=== PATIENT | male | born 1995 | race Caucasian/White ===

== ENCOUNTER → 2021-01-26 | Outpatient (CLI) | payer OTHER ==
[~2021-01-26] MED LIST: Cleocin HCl150 MG PO; MAGIC MOUTHWASH; Prednisone20 MG PO; Zofran Odt4 MG SL
== END | disposition home or self-care (01) ==
LOC: LAB SHORT 16:03
DX: J02.9 Acute pharyngitis, unspecified (principal)
CPT/HCPCS: 87081